=== PATIENT | male | born 1945 | race Caucasian/White ===

== ENCOUNTER → 2018-04-01 | Outpatient (REF) | payer MEDICARE, OTHER | END | disposition home or self-care (01) | LOC: LAB 12:25 | PROVIDERS: ATTEND Obstetrics & Gynecology | DX: E29.1 Testicular hypofunction (principal); E34.9 Endocrine disorder, unspecified; R39.11 Hesitancy of micturition; R53.83 Other fatigue; R68.82 Decreased libido; Z12.5 Encounter for screening for malignant neoplasm of prostate ==

== ENCOUNTER 2018-06-11 06:21 | Day surgery (SDC) | payer MEDICARE, OTHER ==
[~2018-06-11 06:21] MED LIST: ASPIRIN ADULT L81 M3 PO; METFORMIN1000 MG PO; MOBIC7.5 M1 PO; PAROXETINE30 MG PO; POTASSIMIN75 MG PO; VERAPAMIL240 M3 PO; VITAMIN B-121000 MCG PO
[2018-06-11 09:06] VITALS: BP 97/59
== END 2018-06-11 08:40 | disposition home or self-care (01) ==
LOC: ENDO 06:21
PROVIDERS: ATTEND Surgery
PROC: 0DJD8ZZ Inspection of Lower Intestinal Tract, Via Natural or Artificial Opening Endoscopic (ICD-10-PCS; principal; 2018-06-11)
DX: Z12.11 Encounter for screening for malignant neoplasm of colon (principal); K57.30 Diverticulosis of large intestine without perforation or abscess without bleeding; K56.2 Volvulus; K46.9 Unspecified abdominal hernia without obstruction or gangrene; E11.9 Type 2 diabetes mellitus without complications

== ENCOUNTER 2021-08-23 06:43 | Day surgery (SDC) | payer MEDICARE, OTHER ==
[~2021-08-23] VITALS: Ht 188 cm; Wt 89.4 kg
[2021-08-23 11:24] VITALS: BP 151/99
== END 2021-08-23 09:05 | disposition home or self-care (01) ==
LOC: ENDO 06:43
PROVIDERS: ATTEND Surgery
PROC: 0DBL8ZX Excision of Transverse Colon, Via Natural or Artificial Opening Endoscopic, Diagnostic (ICD-10-PCS; principal; 2021-08-23)
DX: Z12.11 Encounter for screening for malignant neoplasm of colon (principal); D12.3 Benign neoplasm of transverse colon; K57.30 Diverticulosis of large intestine without perforation or abscess without bleeding; E11.9 Type 2 diabetes mellitus without complications; F32.A Depression, unspecified; Z79.84 Long term (current) use of oral hypoglycemic drugs

== ENCOUNTER 2023-10-08 22:11 | Emergency (ER) | payer MEDICARE, OTHER ==
[~2023-10-08] VITALS: Ht 188 cm; Wt 70.0 kg
[2023-10-08] VITALS (8 sets, daily range): BP systolic 169–186; BP diastolic 83–157
[~2023-10-08 22:11] MED LIST changes: +GABAPENTIN100 MG PO; +MELOXICAM15 MG PO; -MOBIC7.5 M1 PO; +OMEPRAZOLE DR40 MG PO; +PERCOCET 5/321 COMBO PO; -POTASSIMIN75 MG PO; +POTASSIUM99 MG PO
== END 2023-10-09 | disposition home or self-care (01) ==
LOC: ED 22:11
PROC: 0HQ1XZZ Repair Face Skin, External Approach (ICD-10-PCS; principal; 2023-10-08)
DX: S01.81XA Laceration without foreign body of other part of head, initial encounter (principal); W18.30XA Fall on same level, unspecified, initial encounter